=== PATIENT | male | born 1970 | race Caucasian/White ===

== ENCOUNTER 2025-01-20 10:02 | Outpatient (RCR) | payer OTHER, SELFPAY | END 2025-01-20 23:59 | disposition home or self-care (01) | LOC: RPT 10:02 | PROVIDERS: ATTENDING PHYSICIAN Student in an Organized Health Care Education/Training Program; FAMILY PHYSICIAN Internal Medicine | DX: Z47.1 Aftercare following joint replacement surgery (principal); Z73.6 Limitation of activities due to disability; R26.2 Difficulty in walking, not elsewhere classified; M62.81 Muscle weakness (generalized); R26.89 Other abnormalities of gait and mobility; M25.552 Pain in left hip; Z96.642 Presence of left artificial hip joint | CPT/HCPCS: 97010; 97110; 97112; 97140; 97161 ==

== ENCOUNTER 2025-02-20 06:52 | Outpatient (RCR) | payer OTHER, SELFPAY | END 2025-02-20 23:59 | disposition home or self-care (01) | LOC: RPT 06:52 | PROVIDERS: ATTENDING PHYSICIAN Student in an Organized Health Care Education/Training Program; FAMILY PHYSICIAN Internal Medicine | DX: Z47.1 Aftercare following joint replacement surgery (principal); Z73.6 Limitation of activities due to disability; R26.2 Difficulty in walking, not elsewhere classified; M62.81 Muscle weakness (generalized); R26.89 Other abnormalities of gait and mobility; M25.552 Pain in left hip; Z96.642 Presence of left artificial hip joint | CPT/HCPCS: 97110; 97112; 97530 ==

== ENCOUNTER 2025-03-05 07:14 | Outpatient (RCR) | payer OTHER, SELFPAY | END 2025-03-05 09:03 | disposition home or self-care (01) | LOC: RPT 07:14 | PROVIDERS: ATTENDING PHYSICIAN Student in an Organized Health Care Education/Training Program; FAMILY PHYSICIAN Internal Medicine | DX: Z47.1 Aftercare following joint replacement surgery (principal); Z73.6 Limitation of activities due to disability; R26.2 Difficulty in walking, not elsewhere classified; M62.81 Muscle weakness (generalized); M25.552 Pain in left hip; R26.89 Other abnormalities of gait and mobility; Z96.642 Presence of left artificial hip joint | CPT/HCPCS: 97110; 97112; 97530 ==